=== PATIENT | male | born 1965 | race Caucasian/White ===

== ENCOUNTER → 2018-03-11 | Outpatient (CLI) | payer BC, OTHER | LOC: MRI 07:22 | DX: C38.1 Malignant neoplasm of anterior mediastinum (principal); M41.84 Other forms of scoliosis, thoracic region; M47.894 Other spondylosis, thoracic region; R16.1 Splenomegaly, not elsewhere classified; J98.4 Other disorders of lung ==

== ENCOUNTER → 2018-03-14 | Outpatient (CLI) | payer BC, OTHER | LOC: ULTRA 08:27 | DX: R22.2 Localized swelling, mass and lump, trunk (principal) ==

== ENCOUNTER → 2019-07-24 | Outpatient (CLI) | payer BC, OTHER | LOC: MRI 07-21 16:27 | DX: M75.81 Other shoulder lesions, right shoulder (principal); M19.011 Primary osteoarthritis, right shoulder; G89.29 Other chronic pain ==